=== PATIENT | male | born 1965 | race Caucasian/White ===

== ENCOUNTER 2017-04-04 13:35 | Inpatient (IN) | payer OTHER ==
[2017-04-04 14:01] VITALS: BMI 37.3
[2017-04-04] MEDS ORDERED: ACETAMINOPHEN 325 MG TABLET (FP) PO PRN (18:15)
[2017-04-04] MEDS ORDERED: guaiFENesin/D-METHORPHAN HB 10 ML UNIT-DOSE CUPS PO PRN (18:15)
[2017-04-04] MEDS ORDERED: MAGNESIUM CITRATE 300 ML BOTTLE PO PRN (18:15)
[2017-04-04] MEDS ORDERED: LOPERAMIDE HCL 2 MG CAPSULE PO PRN (18:15)
[2017-04-04] MEDS ORDERED: MAG HYDROX/AL HYDROX/SIMETH 30 ML UNIT-DOSE CUP PO PRN (18:15)
[2017-04-04] MEDS ORDERED: MENTHOL/PHENOL 1 EACH UD MM PRN (18:15)
[2017-04-04] MEDS ORDERED: P-EPHED 60MG/TRIPROLIDI 2.5MG TABLET PO PRN (18:15)
[2017-04-04] MEDS ORDERED: MAGNESIUM HYDROX 2400MG/30ML ORAL SUSPENSION 30 ML CUP PO PRN (18:15)
--- NOTE | 2017-04-04 18:15 | HP ---
Admission ROS [facility] Chief Complaint: I WANT TO GO TO REHAB Allergies/Adverse Reactions: Allergies Allergy/AdvReac Type Severity Reaction Status Date / Time No Known Allergies Allergy Verified 04/04/17 16:14 History of Present Illness: 52 YEARS OLD MALE WITH LONG HISTORY OF MARIJUANA DEPENDENCE, HAS ASTHMA IS ADMITTED TO REHAB Exam Limitations: No Limitations - Ebola screening Have you traveled outside of the country in the last 21 days: No Have you had contact with anyone from an Ebola affected area: No Have you been sick,other than usual withdrawal symptoms: No Do you have a fever: No - Review of Systems Constitutional: Weight Stable EENT: reports: Other (EYE GLASSES) Respiratory: reports: No Symptoms reported Cardiac: reports: No Symptoms Reported GI: reports: No Symptoms Reported : reports: No Symptoms Reported Musculoskeletal: reports: No Symptoms Reported Integumentary: reports: No Symptoms Reported Neuro: reports: No Symptoms reported Endocrine: reports: No Symptoms Reported Hematology: reports: No Symptoms Reported Psychiatric: reports: Judgement Intact, Mood/Affect Appropiate, Orientated x3 Other Systems: Reviewed and Negative Patient History - Patient Medical History Hx Anemia: No Hx Asthma: Yes (Pt is on MDI) Hx Chronic Obstructive Pulmonary Disease (COPD): No Hx Cancer: No Hx Cardiac Disorders: No Hx Congestive Heart Failure: No Hx Hypertension: No Hx Hypercholesterolemia: No Hx Pacemaker: No HX Cerebrovascular Accident: No Hx Seizures: No Hx Dementia: No Hx Diabetes: No Hx Gastrointestinal Disorders: No Hx Liver Disease: No Hx Genitourinary Disorders: No Hx Sexually Transmitted Disorders: No Hx Renal Disease (ESRD): No Hx Thyroid Disease: No Hx Human Immunodeficiency Virus (HIV): No Hx Hepatitis C: No Hx Depression: No Hx Suicide Attempt: No Hx Bipolar Disorder: No Hx Schizophrenia: No - Patient Surgical History Past Surgical History: Yes Other Surgical History: R inguinal hernia sx. Anesthesia Reaction: No - PPD History Previous Implant?: Yes Documented Results: Negative w/o proof Implanted On Prior [facility] Admission?: No PPD to be Administered?: Yes - Smoking Cessation Smoking history: Never smoked Have you smoked in the past 12 months: No Hx Chewing Tobacco Use: No Initiated information on smoking cessation: No - Substance & Tx. History Hx Alcohol Use: No Hx Substance Use: Yes Substance Use Type: Marijuana Hx Substance Use Treatment: No - Substances Abused Marijuana/Hashish Route: Smoking Frequency: Daily Amount used: $100 Age of first use: 49 Date of Last Use: 04/03/17 Family Disease History - Family Disease History Family Disease History: Respiratory: Father, Mother, Brother, Sister Admission Physical Exam [facility] - Vital Signs Vital Signs: Vital Signs - 24 hr 04/04/17 13:59 Temperature 97.8 F Pulse Rate 61 Respiratory 20 Rate Blood Pressure 141/89 - Physical General Appearance: Yes: No Apparent Distress, Appropriately Dressed, Obese HEENTM: Yes: Hearing grossly Normal, Normal ENT Inspection, Normocephalic, Normal Voice Respiratory: Yes: Chest Non-Tender, No Respiratory Distress, No Accessory Muscle Use, Wheezing Neck: Yes: Supple, Trachea in good position Breast: Yes: Breasts Symetrical Cardiology: Yes: Regular Rhythm, S1, S2, Bradycardia Abdominal: Yes: Non Tender, Soft Genitourinary: Yes: Within Normal Limits Back: Yes: Normal Inspection Musculoskeletal: Yes: full range of Motion, Gait Steady Extremities: Yes: Normal Inspection, Normal Range of Motion, Non-Tender Neurological: Yes: Fully Oriented, Alert, Motor Strength 5/5, Normal Mood/Affect , Normal Response Integumentary: Yes: Warm Lymphatic: Yes: Within Normal Limits - Diagnostic (1) Asthma Current Visit: Yes Status: Chronic Qualifiers: Asthma severity: mild intermittent Asthma complication type: with status asthmaticus Qualified Code(s): J45.22 - Mild intermittent asthma with status asthmaticus (2) Cannabis abuse, uncomplicated Current Visit: Yes Status: Chronic Cleared for Admission [facility] - Detox or Rehab [facility] Level of Care: Observation Bed Detox Regimen/Protocol: Not Applicable Claeared for Rehab Admission: Yes [facility] Breath Alcohol Content Breath Alcohol Content: 0 Urine Drug Screen - Results Drug Screen Negative: No Urine Drug Screen Results: THC-Marijuana
[2017-04-04] MEDS: THIAMINE HCL 100 MG TABLET (FP) PO SCH (22:31)
[2017-04-04] MEDS ORDERED: TUBERCULIN PPD 5 TU/0.1ML VIAL ID ONE (22:34)
[2017-04-04 23:08] LABS: URINE APPEARANCE CLEAR; URINE BILIRUBIN NEGATIVE (NEGATIVE); URINE BLOOD NEGATIVE (NEGATIVE); URINE COLOR YELLOW; URINE GLUCOSE (UA) NEGATIVE (NEGATIVE); URINE KETONE NEGATIVE (NEGATIVE); URINE LEUK ESTERASE NEGATIVE (NEGATIVE); URINE NITRITE NEGATIVE (NEGATIVE); URINE PROTEIN NEGATIVE (NEGATIVE); URINE UROBILINOGEN NEGATIVE E.U./dl (0.2-1.0)
[2017-04-05 09:57] LABS: MCH 32.9 pg (25.7-33.7); MCHC 32.6 g/dl (32.0-35.9); MEAN PLT VOLUME 10.4 fl (7.5-11.1); PLATELET COUNT 208 K/MM3 (134-434); RDW 12.3 % (11.9-15.9); WHITE BLOOD COUNT 11.1 K/mm3 (4.0-10.0)
[2017-04-05 10:01] LABS: ALBUMIN 3.9 g/dl (3.4-5.0); ANION GAP 7 (8-16); BILIRUBIN,TOTAL 0.9 mg/dL (0.2-1.0); CALCIUM 9.3 mg/dL (8.5-10.1); CO2 26 mmol/L (21-32); CREATININE 0.9 mg/dL (0.7-1.3); GLUCOSE,RANDOM 117 mg/dL (74-106); SGOT/AST 19 U/L (15-37); SGPT/ALT 41 U/L (12-78); TOT PROT 7.3 g/dl (6.4-8.2)
[2017-04-05 10:02] LABS: ALK PHOS 61 U/L (45-117)
[2017-04-05] MEDS: PRENATAL VITAMINS W/ FOLIC ACID TABLET (FP) PO SCH (10:08)
--- NOTE | 2017-04-05 13:19 | HP ---
Psychiatrist Admission - Data Date of interview: 04/05/17 Admission source: [facility] Identifying data: This is the first [facility] admission for this 52 years old single male, unemployed with no source of income, living in a room Medical History: Significant for Asthma and surgery for right inguinal hernia repair Psychiatric History: Denies history of previous psychiatric treatment Physical/Sexual Abuse/Trauma History: Denies Additional Comment: Reports history of one previous misdemeanor arrest 10 years ago. Denies being on probation Vital Signs: Vital Signs - 24 hr 04/04/17 04/05/17 04/05/17 13:59 00:30 03:30 Temperature 97.8 F Pulse Rate 61 Respiratory 20 16 18 Rate Blood Pressure 141/89 04/05/17 07:06 Temperature 98.4 F Pulse Rate 68 Respiratory 18 Rate Blood Pressure 144/84 Allergies/Adverse Reactions: Allergies Allergy/AdvReac Type Severity Reaction Status Date / Time No Known Allergies Allergy Verified 04/04/17 16:14 Date of last physical exam: 04/04/17 Concur with the findings of this exam: Yes - Substance Abuse/Tx History Hx Alcohol Use: No Hx Substance Use: Yes Substance Use Type: Marijuana (Started smoking marijuana at age 49, consumes $ 100 worth daily. Last smoked on 04/03/17) Hx Substance Use Treatment: No - Admission Criteria Previous failed treatment: No Poor recovery environment: Yes Comorbidities: Yes Lacks judgement: Yes Mental Status Exam - Mental Status Exam Alert and Oriented to: Time, Place, Person Cognitive Function: Fair Patient Appearance: Well Groomed Mood: Anxious Affect: Appropriate Patient Behavior: Cooperative Speech Pattern: Clear Voice Loudness: Normal Thought Process: Intact, Goal Oriented Thought Disorder: Not Present Hallucinations: Denies Suicidal Ideation: Denies Homicidal Ideation: Denies Insight/Judgement: Fair Sleep: Well Appetite: Good Muscle strength/Tone: Normal Gait/Station: Normal Psychiatric Findings - Problem List ([place] 1, 2,3) (1) Cannabis dependence Current Visit: Yes Status: Acute (2) Asthma Current Visit: Yes Status: Chronic Qualifiers: Asthma severity: mild intermittent Asthma complication type: with status asthmaticus Qualified Code(s): J45.22 - Mild intermittent asthma with status asthmaticus - Initial Treatment Plan Initial Treatment Plan: Monitor progress
[2017-04-05] MEDS: IBUPROFEN 400 MG TABLET (FP) PO PRN (20:04)
[2017-04-05] MEDS: THIAMINE HCL 100 MG TABLET (FP) PO SCH (21:36)
[2017-04-06] MEDS: ALBUTEROL SO4 6.7 GM HFA INHALER IH PRN ×2 (06:31→09:54)
[2017-04-06] MEDS: PRENATAL VITAMINS W/ FOLIC ACID TABLET (FP) PO SCH (10:51)
--- NOTE | 2017-04-06 12:15 | PN ---
[facility] Progress Note Note: patient is anxious,agitate, Vital Signs Temperature 98.4 F 04/06/17 06:54 Pulse Rate 83 04/06/17 10:25 Respiratory Rate 16 04/06/17 06:54 Blood Pressure 147/95 04/06/17 10:25 O2 Sat by Pulse Oximetry (%) will give clonidine 0.1 mg po,vistaril 50 mgs po now close monitoring
[2017-04-06] MEDS ORDERED: cloNIDine HCL 0.1 MG TABLET PO ONE (13:00)
[2017-04-06] MEDS: hydrOXYzine PAMOATE 50 MG CAPSULE (FP) PO PRN (13:22)
[2017-04-06] MEDS: cloNIDine HCL 0.1 MG TABLET PO PRN (21:46)
[2017-04-06] MEDS: IBUPROFEN 400 MG TABLET (FP) PO PRN (21:47)
[2017-04-06] MEDS: THIAMINE HCL 100 MG TABLET (FP) PO SCH (21:47)
[2017-04-07] MEDS: ALBUTEROL SO4 6.7 GM HFA INHALER IH PRN ×3 (06:39→21:26)
[2017-04-07] MEDS: IBUPROFEN 400 MG TABLET (FP) PO PRN ×2 (06:40→21:25)
[2017-04-07] MEDS: PRENATAL VITAMINS W/ FOLIC ACID TABLET (FP) PO SCH (10:07)
[2017-04-07] MEDS: THIAMINE HCL 100 MG TABLET (FP) PO SCH (21:24)
--- NOTE | 2017-04-07 22:18 | EKG ---
Test Reason : Blood Pressure : / mmHG Vent. Rate : 060 BPM Atrial Rate : 060 BPM P-R Int : 168 ms QRS Dur : 090 ms QT Int : 376 ms P-R-T Axes : 032 010 -17 degrees QTc Int : 376 ms NORMAL SINUS RHYTHM NON-SPECIFIC INTRA-VENTRICULAR CONDUCTION DELAY NONSPECIFIC T WAVE ABNORMALITY ABNORMAL ECG NO PREVIOUS ECGS AVAILABLE Confirmed by FLORINA DYE MD ([id number]) on 04/07/2017 10:17:39 PM Referred By: Confirmed By:FLORINA DYE MD
[2017-04-08] MEDS: IBUPROFEN 400 MG TABLET (FP) PO PRN ×3 (06:36→21:29)
[2017-04-08] MEDS: PRENATAL VITAMINS W/ FOLIC ACID TABLET (FP) PO SCH (10:20)
[2017-04-08] MEDS: BACITRACIN 0.9 GM PACKET TP SCH ×2 (10:20→21:28)
[2017-04-08] MEDS: ALBUTEROL SO4 6.7 GM HFA INHALER IH PRN (19:56)
[2017-04-08] MEDS: THIAMINE HCL 100 MG TABLET (FP) PO SCH (21:32)
[2017-04-09] MEDS: BACITRACIN 0.9 GM PACKET TP SCH ×2 (10:04→21:50)
[2017-04-09] MEDS: PRENATAL VITAMINS W/ FOLIC ACID TABLET (FP) PO SCH (10:04)
[2017-04-09] MEDS: TOLNAFTATE 1% CREAM 15 GM TUBE TP SCH ×2 (10:05→22:12)
[2017-04-09] MEDS: IBUPROFEN 400 MG TABLET (FP) PO PRN ×2 (10:06→17:54)
[2017-04-09] MEDS: ALBUTEROL SO4 6.7 GM HFA INHALER IH PRN ×2 (10:06→17:53)
[2017-04-09] MEDS: THIAMINE HCL 100 MG TABLET (FP) PO SCH (21:50)
[2017-04-09] MEDS: cloNIDine HCL 0.1 MG TABLET PO PRN (21:51)
[2017-04-10] MEDS: IBUPROFEN 400 MG TABLET (FP) PO PRN ×2 (06:27→21:36)
[2017-04-10] MEDS: cloNIDine HCL 0.1 MG TABLET PO PRN (06:37)
[2017-04-10] MEDS: BACITRACIN 0.9 GM PACKET TP SCH ×2 (09:45→21:36)
[2017-04-10] MEDS: TOLNAFTATE 1% CREAM 15 GM TUBE TP SCH ×2 (09:45→21:37)
[2017-04-10] MEDS: PRENATAL VITAMINS W/ FOLIC ACID TABLET (FP) PO SCH (09:45)
[2017-04-10] MEDS: ALBUTEROL SO4 6.7 GM HFA INHALER IH PRN (09:51)
[2017-04-10] MEDS: THIAMINE HCL 100 MG TABLET (FP) PO SCH (21:36)
[2017-04-11] MEDS: ALBUTEROL SO4 6.7 GM HFA INHALER IH PRN (06:39)
[2017-04-11] MEDS: PRENATAL VITAMINS W/ FOLIC ACID TABLET (FP) PO SCH (09:46)
[2017-04-11] MEDS: BACITRACIN 0.9 GM PACKET TP SCH ×2 (09:46→21:32)
[2017-04-11] MEDS: TOLNAFTATE 1% CREAM 15 GM TUBE TP SCH ×2 (09:46→21:32)
--- NOTE | 2017-04-11 10:17 | PN ---
S Progress Note Note: patient has one stitch in the right leg with irritation with slight drainage, injury 1 week ago,seen in [facility] stitch removed clean with nss,bacitracin ointment bid
[2017-04-11] MEDS: THIAMINE HCL 100 MG TABLET (FP) PO SCH (21:32)
[2017-04-11] MEDS: diphenhydrAMINE HCL 50 MG CAPSULE PO PRN (21:32)
[2017-04-12] MEDS: cloNIDine HCL 0.1 MG TABLET PO PRN (06:36)
[2017-04-12] MEDS: ALBUTEROL SO4 6.7 GM HFA INHALER IH PRN (06:37)
[2017-04-12] MEDS: BACITRACIN 0.9 GM PACKET TP SCH ×2 (10:04→21:24)
[2017-04-12] MEDS: TOLNAFTATE 1% CREAM 15 GM TUBE TP SCH ×2 (10:04→21:23)
[2017-04-12] MEDS: PRENATAL VITAMINS W/ FOLIC ACID TABLET (FP) PO SCH (10:05)
[2017-04-12] MEDS: diphenhydrAMINE HCL 50 MG CAPSULE PO PRN (21:23)
[2017-04-12] MEDS: THIAMINE HCL 100 MG TABLET (FP) PO SCH (21:23)
[2017-04-12] MEDS: IBUPROFEN 400 MG TABLET (FP) PO PRN (21:24)
[2017-04-13] MEDS: cloNIDine HCL 0.1 MG TABLET PO PRN (08:27)
[2017-04-13] MEDS: PRENATAL VITAMINS W/ FOLIC ACID TABLET (FP) PO SCH (12:53)
[2017-04-13] MEDS: BACITRACIN 0.9 GM PACKET TP SCH ×2 (12:53→21:13)
[2017-04-13] MEDS: TOLNAFTATE 1% CREAM 15 GM TUBE TP SCH ×2 (12:53→21:12)
[2017-04-13] MEDS: THIAMINE HCL 100 MG TABLET (FP) PO SCH (21:12)
[2017-04-13] MEDS: diphenhydrAMINE HCL 50 MG CAPSULE PO PRN (21:13)
[2017-04-14] MEDS: cloNIDine HCL 0.1 MG TABLET PO PRN (07:00)
[2017-04-14] MEDS: hydrOXYzine PAMOATE 50 MG CAPSULE (FP) PO PRN (09:23)
[2017-04-14] MEDS: TOLNAFTATE 1% CREAM 15 GM TUBE TP SCH ×2 (09:23→22:04)
[2017-04-14] MEDS: BACITRACIN 0.9 GM PACKET TP SCH ×2 (09:23→22:04)
[2017-04-14] MEDS: PRENATAL VITAMINS W/ FOLIC ACID TABLET (FP) PO SCH (09:23)
--- NOTE | 2017-04-14 18:06 | PN ---
[facility] Progress Note Note: urine for drug screening shoed positive for thc,patient has positive thc since admission to rehab,seen by counselor, continue monitoring in rehab,nursing warehouse and receiving supervisor awared
[2017-04-14] MEDS: THIAMINE HCL 100 MG TABLET (FP) PO SCH (22:04)
[2017-04-15] MEDS: hydrOXYzine PAMOATE 50 MG CAPSULE (FP) PO PRN ×2 (04:00→19:30)
[2017-04-15] MEDS: BACITRACIN 0.9 GM PACKET TP SCH ×2 (10:03→21:36)
[2017-04-15] MEDS: PRENATAL VITAMINS W/ FOLIC ACID TABLET (FP) PO SCH (10:03)
[2017-04-15] MEDS: TOLNAFTATE 1% CREAM 15 GM TUBE TP SCH ×2 (10:03→21:36)
[2017-04-15] MEDS ORDERED: ONDANSETRON *ODT* 4 MG TABLET SL PRN (12:54)
[2017-04-15] MEDS: IBUPROFEN 400 MG TABLET (FP) PO PRN (20:25)
[2017-04-15] MEDS: THIAMINE HCL 100 MG TABLET (FP) PO SCH (21:37)
[2017-04-16 06:39] VITALS: TEMP 98.2
[2017-04-16] MEDS: IBUPROFEN 400 MG TABLET (FP) PO PRN (08:18)
[2017-04-16] MEDS: TOLNAFTATE 1% CREAM 15 GM TUBE TP SCH (10:26)
[2017-04-16] MEDS: PRENATAL VITAMINS W/ FOLIC ACID TABLET (FP) PO SCH (10:26)
[2017-04-16] MEDS: BACITRACIN 0.9 GM PACKET TP SCH (10:26)
[2017-04-16 10:27] VITALS: BP 163/95; PULSE 115
== END 2017-04-16 11:38 | disposition home or self-care (01) | DRG 772 ==
LOC: YASAS 13:35 → Y3W 16:28
PROVIDERS: ADMIT Psychiatry & Neurology Psychiatry; ATTEND Psychiatry & Neurology Psychiatry
PROC: HZ42ZZZ Group Counseling for Substance Abuse Treatment, Cognitive-Behavioral (ICD-10-PCS; principal; 2017-04-04)
DX: F12.20 Cannabis dependence, uncomplicated (principal); J45.22 Mild intermittent asthma with status asthmaticus; E66.9 Obesity, unspecified; Z68.37 Body mass index [BMI] 37.0-37.9, adult
CPT/HCPCS: 36415; 80053; 81003; 85027; 86593; 93005; 93010